=== PATIENT | male | born 1935 | race Caucasian/White ===

== ENCOUNTER 2018-05-27 00:07 | Emergency (ER) | payer MEDICARE, MEDICAID ==
[~2018-05-27] VITALS: Ht 167.6 cm; Wt 78.0 kg
[2018-05-27 01:31] VITALS: BP 121/70
== END 2018-05-27 01:38 | disposition home or self-care (01) ==
LOC: ER 00:07
DX: R33.9 Retention of urine, unspecified (principal); E11.9 Type 2 diabetes mellitus without complications; I10 Essential (primary) hypertension
CPT/HCPCS: 51702; 99284